=== PATIENT | male | born 1945 | race Caucasian/White ===

== ENCOUNTER 2017-03-06 15:18 | Emergency (ER) | payer MEDICARE, OTHER ==
[~2017-03-06] VITALS: Ht 182.9 cm; Wt 83.9 kg
--- OUTSIDE RECORDS SUMMARY | 2017-03-06 15:29 | External Medical Summary Rpt | CCD ---
Author Author [facility] Organization [facility] Address Unknown Phone Unavailable Purpose Continuity of Care Document - through 2016
--- OUTSIDE RECORDS SUMMARY | 2017-03-06 15:29 | External Medical Summary Rpt | CCD ---
Author Author , ALEXANDREA MOELLER Address Unknown Phone [email or web address] Purpose Continuity of Care Document - through 2016
--- OUTSIDE RECORDS SUMMARY | 2017-03-06 15:29 | External Medical Summary Rpt | CCD ---
Author Author , ALEXANDREA MOELLER Address Unknown Phone [email or web address] Purpose Continuity of Care Document - through 2016
--- OUTSIDE RECORDS SUMMARY | 2017-03-06 15:30 | External Medical Summary Rpt | CCD ---
Demographics Preferred Language Citizen Of [place] Marital Status Unknown Muslim Affiliation Unknown Race Unknown Ethnic Group Unknown Author Author , ALEXANDREA MOELLER Address Unknown Phone Immunization No patient found.
--- OUTSIDE RECORDS SUMMARY | 2017-03-06 15:30 | External Medical Summary Rpt | CCD ---
Demographics Preferred Language Iraqi Marital Status Unknown Episcopalian Affiliation Unknown Race Unknown Ethnic Group Unknown Author Author , ALEXANDREA MOELLER Address Unknown Phone Immunization No patient found.
--- NOTE | 2017-03-06 15:55 | Urgent Treatment Center Report ---
History of Present Issue Date/Time Seen by Provider 03/06/17 1547 Visit Reason Pt arrived:Walked Presenting Problem:PT C/O DIFFICULTY HEARING OUT OF HIS RT EAR X1 WEEK Location if Accident: Onset of symptoms date/time:/ or onset unknown for:MEDICAL HX UNKNOWN Have you (or family members/close friends) recently traveled outside the [place]? N If Yes, where/when: Have you had exposure to infectious disease within the past month? TB? Other? Specify: Patient states that he is having difficulty hearing out of his right ear for over a week now State that it feel like it is stopped up State that he has done this before and had to have ears cleaned out. State that he is not having any ear pain just feels like it is stopped up ALLERGIES Coded Allergies: oxycodone (Mild, 03/06/17) History Medical History General CAD? No Angina: No [place]: No Hypertension? Yes Hyperlipidemia? No CHF? No DVT? No PE? No COPD? No Asthma? No Anemia? No GERD? No Gastric ulcers? No GI Bleed? No Hernia? No Thyroid Problems? No Hypothyroidism? No CVA? No Seizures? No Diabetes? No Renal Insuffiency? No UTI? No Stones? No BPH? No GB Disease: No Nephritic Syndrome? No Asplenia? No Hepatitis? No Sickle Cell Disease? No Arthritis? No Migraines? No Cataracts? No Glaucoma? No MRSA? No HIV? No TB? No Anxiety? No Depression? No Site: N Immunization HX DT/Tetanus Unknown Surgical Hx Previous Surgery?N Social History Smoking Hx Smoker: Never Smoker Tobacco: No Alcohol Alcohol: No Review of Systems All Other Systems Reviewed and Negative Physical Exam Vital Signs Vital Signs Date Time Temp Pulse Resp B/P Pulse O2 O2 Flow FiO2 Ox Delivery Rate 03/06 1530 98.1 65 18 137/69 98 General Appearance normal appearance, WD/WN, no apparent distress Ear, Nose, Throat Right ear large ball of was blocking canal, left ear large amount of wax present Respiratory Status Yes: trachea midline, chest symmetrical, non tender chest. No: respiratory distress. Cardiovascular normal exam, regular rate/rhythm Neurologic alert, normal exam, oriented x 3 Comments After removing large ball of wax in right ear, checked ear and still unable to see TM patient still denies pain however not able to visualize TM and patient state that he is still having muffled hearing in that ear. Called Dr Pal and he was still in the office and agreed that he would see patient and to send patient on down to his clinic Medical Decision Making LABS/Meds/Orders Pt receiving controlled substance in ED? No Consult MD Physician Consult Consult/PCP [facility] Reason Pt. Condition, ENT eval/care Comments Agreed to see patient and advised to bring him down to his clinic. ear canal abnormality Departure Departure Time of Disposition 1553 Disposition DC Home or Self Care(routine) Clinical Impression Primary Impression: Ear problem Qualifiers: Laterality: right Qualified Code: H93.91 - Unspecified disorder of right ear Condition STABLE Referrals [facility]NE,Kraig Ornelas Additional Instructions Go straight to Dr Jorge office for evaluation and treatment Discharge Counseling Counseled pt/family regarding diagnosis, home care, follow up needs at 1555
[2017-03-06 16:01] VITALS: BP 137/69
== END 2017-03-06 16:01 | disposition home or self-care (01) ==
LOC: UTC 15:18
DX: H93.91 Unspecified disorder of right ear (principal); I10 Essential (primary) hypertension; Z79.899 Other long term (current) drug therapy